=== PATIENT | male | born 1950 | race Two or more races ===

== ENCOUNTER 2021-08-15 13:58 | Outpatient (CLI) | payer MEDICARE, OTHER ==
[2021-08-16 08:32] LABS: SARS-CoV-2 PCR by NAA Not Detected (NotDetected)
== END 2021-08-15 13:59 | disposition home or self-care (01) ==
LOC: LABBT 13:58
PROVIDERS: ATTEND Ophthalmology Retina Specialist
DX: Z01.812 Encounter for preprocedural laboratory examination (principal); H35.371 Puckering of macula, right eye; H54.61 Unqualified visual loss, right eye, normal vision left eye; Z20.822 Contact with and (suspected) exposure to COVID-19
CPT/HCPCS: U0003; U0005

== ENCOUNTER 2021-08-20 07:21 | Day surgery (SDC) | payer MEDICARE ==
[2021-08-19 11:24] VITALS: BMI 27.3
[~2021-08-20 07:21] MED LIST: EPINEPHrine 0.3 MG in Ophthalmic Irrigation Solution 500 ML IRR SCH; Fentanyl 100 MCG/2 ML VIAL ONE; Midazolam HCl 2 mg/2 ml Vial ONE
[2021-08-20] MEDS ORDERED: Phenylephrine 2.5% Ophth Soln 5 ML BOT ONE (07:28)
[2021-08-20] MEDS ORDERED: Cyclopentolate 1% Opth Drop 2 ML BOT ONE (07:28)
[2021-08-20] MEDS ORDERED: PROPOFOL 200 MG/20 ML VIAL ONE ×2 (09:15→11:15)
[2021-08-20] MEDS ORDERED: Indocyanine Green 25 MG/10 ML VIAL ONE (09:15)
[2021-08-20] MEDS ORDERED: Lidocaine 1% PF 5 ML VIAL ONE (09:15)
[2021-08-20] MEDS ORDERED: Bupivacaine PF 0.75% SDV 10 ML ONE ×2 (09:15→11:15)
[2021-08-20] MEDS ORDERED: CEFAZOLIN 1 GM VIAL ONE (09:15)
[2021-08-20] MEDS ORDERED: Lidocaine 4% PF 5 ML AMP ONE ×2 (09:15→11:15)
[2021-08-20] MEDS ORDERED: Triamcinolone 40 MG/ML VIAL ONE ×2 (09:15→11:15)
[2021-08-20] MEDS ORDERED: Maxitrol 0.1% Opth Oint 3.5 GM TUBE ONE (11:15)
== END 2021-08-20 11:08 | disposition home or self-care (01) ==
LOC: SDC 07:21
PROVIDERS: ATTEND Ophthalmology Retina Specialist
PROC: 08T43ZZ Resection of Right Vitreous, Percutaneous Approach (ICD-10-PCS; principal; 2021-08-20)
PROC: 08NE3ZZ Release Right Retina, Percutaneous Approach (ICD-10-PCS; 2021-08-20)
DX: H35.371 Puckering of macula, right eye (principal); I10 Essential (primary) hypertension; E78.5 Hyperlipidemia, unspecified; N40.0 Benign prostatic hyperplasia without lower urinary tract symptoms; Z88.1 Allergy status to other antibiotic agents; Z88.8 Allergy status to other drugs, medicaments and biological substances; Z88.7 Allergy status to serum and vaccine; Z79.899 Other long term (current) drug therapy; Z90.49 Acquired absence of other specified parts of digestive tract; Z98.890 Other specified postprocedural states; Z87.19 Personal history of other diseases of the digestive system
CPT/HCPCS: J0171; J2250; J3010